=== PATIENT | female | born 1975 | race African-American/Black ===

== ENCOUNTER 2018-12-17 19:36 | Emergency (ER) | payer OTHER ==
[~2018-12-17] VITALS: Ht 175.3 cm; Wt 59.0 kg
[2018-12-17 19:38] VITALS: BP 123/74
== END 2018-12-17 23:02 | disposition left against medical advice (07) ==
LOC: ER 19:36
DX: Z53.21 Procedure and treatment not carried out due to patient leaving prior to being seen by health care provider (principal)